=== PATIENT | female | born 1990 | race American Indian/Alaskan Native ===

== ENCOUNTER 2017-06-20 16:54 | Outpatient (CLI) | payer MEDICAID ==
[2017-06-20 18:02] VITALS: BP 115/65
--- NOTE | 2017-06-20 20:28 | Ultrasound Report ---
FINAL REPORT EXAM: US OB LIMITED HISTORY: NHUNG TECHNIQUE: Biophysical profile obstetrical ultrasound PRIORS: None. FINDINGS: LMP 09/12/2016 clinical Age: 40 W 1 D LMP EDC 06/19/2017 Biophysical profile scoring 2 movement 2 tone 2 breathing 2 fluid 8/8 overall score Presentation: Cephalic Cardiac motion: 143 BPM using M-mode doppler Amniotic Fluid Volume: Adequate NHUNG: 8.5 cm IMPRESSION: Single intrauterine viable with an approximate age of 40 weeks 1 days. Biophysical profile score is. 8/8
--- NOTE | 2017-06-20 20:32 | Ultrasound Report ---
FINAL REPORT EXAM: US OB BPP WO NON-STRESS HISTORY: BPP . NHUNG. Onset of labor TECHNIQUE: Biophysical profile obstetrical ultrasound. Cine clips were obtained PRIORS: None. FINDINGS: LMP 09/12/2016 clinical Age: 40 W 1 D LMP EDC 06/19/2017 Biophysical profile scoring 2 movement 2 tone 2 breathing 2 fluid 8/8 overall score Presentation: Cephalic Activity: Monitored Cardiac motion: 143 BPM using M-mode doppler Amniotic Fluid Volume: Adequate NHUNG: 8.5 cm IMPRESSION: Single intrauterine cephalic with an approximate age of 40 weeks 1 days. Biophysical profile score is. 8/8
== END 2017-06-20 19:52 | disposition home or self-care (01) ==
LOC: TRG 16:54
PROVIDERS: ATTEND Obstetrics & Gynecology
DX: O48.0 Post-term pregnancy (principal); Z3A.40 40 weeks gestation of pregnancy
CPT/HCPCS: 59025; 76815; 76819

== ENCOUNTER 2017-06-21 19:07 | Outpatient (CLI) | payer MEDICAID ==
[2017-06-21] MEDS ORDERED: VISTARIL PO PRN (20:05)
[2017-06-23 01:37] VITALS: BP 169/88
== END 2017-06-21 20:28 | disposition home or self-care (01) ==
LOC: TRG 19:07
PROVIDERS: ATTEND Obstetrics & Gynecology
DX: O62.9 Abnormality of forces of labor, unspecified (principal); O48.0 Post-term pregnancy; Z3A.40 40 weeks gestation of pregnancy
CPT/HCPCS: 59025; Q0177

== ENCOUNTER 2017-06-22 20:51 | Inpatient (IN) | payer MEDICAID ==
[2017-06-22] MEDS ORDERED: ePHEDrine SULFATE IV PRN ×2 (20:58→22:33)
[2017-06-22] MEDS ORDERED: XYLOCAINE 2% INFILTRATI ONE (20:58)
[2017-06-22] MEDS ORDERED: STADOL IV PRN (20:58)
[2017-06-22] MEDS ORDERED: BRETHINE SUB-Q PRN (20:58)
[2017-06-22] MEDS ORDERED: MINERAL OIL PO PRN (20:58)
[2017-06-22] MEDS ORDERED: BRETHINE IVP PRN (20:58)
[2017-06-22] MEDS ORDERED: PITOCin/NS 20 UNIT/1000ML DRIP 20 UNITS/1,000 ML BAG IV SCH (21:00)
[2017-06-22 21:15] LABS: Hematocrit 36.3 % (30.3-42.9); Mean Corpuscular HGB Conc 33 % (30-34); Mean Corpuscular Hemoglobin 29 pg (28-32); Mean Corpuscular Volume 88 fl (79-97); Platelet Count 333 K/mm3 (140-440); Red Blood Count 4.13 M/mm3 (3.65-5.03); Red Cell Distribution Width 15.8 % (13.2-15.2)
[2017-06-22] MEDS: NORMOSOL-R PH 7.4 1,000 ML IV SCH ×2 (21:21→22:35)
[2017-06-22] MEDS ORDERED: NARCAN 2 MG/2 ML IV PRN (22:33)
--- NOTE | 2017-06-22 22:33 | Anesthesia Consultation ---
Anesthesia Consult and Med Hx - Airway Anesthetic Teeth Evaluation: Good ROM Head & Neck: Adequate Mental/Hyoid Distance: Adequate Mallampati Class: Class II Intubation Access Assessment: Good - Pulmonary Exam CTA: Yes - Cardiac Exam Cardiac Exam: RRR - Pre-Operative Health Status ASA Pre-Surgery Classification: ASA2 Proposed Anesthetic Plan: Epidural, Spinal - Pulmonary Hx Asthma: No COPD: No Hx Pneumonia: No - Cardiovascular System Hx Hypertension: No - Central Nervous System Hx Seizures: No Hx Psychiatric Problems: No - Endocrine Hx Renal Disease: No Hx End Stage Renal Disease: No Hx Hypothyroidism: No Hx Hyperthyroidism: No - Hematic Hx Anemia: No Hx Sickle Cell Disease: No - Other Systems Hx Alcohol Use: No
--- NOTE | 2017-06-22 22:51 | History and Physical Report ---
History of Present Illness Date of examination: 06/22/17 Date of admission: 06/22/17 20:53 Chief complaint: contractions History of present illness: Pt presents in active labor. + FM Pt examined and noted to be in active labor. EDC Confirmation: 06/19/2017 Gestational Age: 18 3/7 weeks Past History Para: 1 Past Medical History: Peptic Ulcer Disease - endoscopy and hospitalization at [facility] gum infection Past Surgical History: Reviewed history from 03/16/2015 and no changes required: negative Past Medical History Abnormal PAP: negative VERONICA Exposure: negative Infertility: negative Uterine Anomaly: negative Uterine Surgery (not C/S): negative Other Gynecologic Problems: negative Social Hx: Patient is single Unemployed Smoking History: Patient has never smoked. Infection History Hx of STD: none HIV Risk Eval: no Hepatitis B Risk Eval: low risk Personal hx. of genital herpes: no Partner hx. of genital herpes: no Rash, Viral, or Febrile illness since last LMP? no Varicella/Chicken Pox Status: Previous Disease Genetic History Congenital Heart Defect: Mom: no Dad: no Andre Disease: Mom: no Dad: no Thalassemia Mom: no Dad: no Neural Tube Defect Mom: no Dad: no Down's Syndrome Mom: no Dad: no Abhijit-Sachs Mom: no Dad: no Sickle Cell Disease/Trait Mom: no Dad: no Hemophilia Mom: no Dad: no Muscular Dystrophy Mom: no Dad: no Cystic Fibrosis Mom: no Dad: no Miguelina Chorea Mom: no Dad: no Mental Retardation Mom: no Dad: no Fragile X Mom: no Dad: no Other Genetic/Chromosomal Disorder Mom: no Dad: no Child w/other defect Mom: no Dad: no Enviromental Exposures Xray Exposure: no Medication, drug, or alcohol use since LMP: no Chemical/Other Exposure: no Exposure to Cat Liter: no Hx of Parvovirus (Fifth Disease): no Occupational Exposure to Children: none Active Medications (reviewed today): PROMETHAZINE HCL 25 MG ORAL TABLET (PROMETHAZINE HCL) 1 tab po q6hrs prn Current Allergies (reviewed today): * CODEINE (Critical) Past History Past Medical History: no pertinent history Past Surgical History: no surgical history 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: 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: abnormal PAP smear Social history: no significant social history, single - Obstetrical History Expected Date of Delivery: 06/19/17 Actual Gestation: 40 Week(s) 3 Day(s) : 4 Para: 1 Spontaneous Abortions: 2 Number of Living Children: 1 Medications and Allergies Allergies Allergy/AdvReac Type Severity Reaction Status Date / Time codeine Allergy Itching Verified 12/18/14 08:17 Home Medications Medication Instructions Recorded Confirmed Last Taken Type Nitrofurantoin Mccreary/M-Cryst 100 mg PO Q12HR #14 capsule 12/18/14 08/21/15 Unknown Rx [Macrobid CAP] metroNIDAZOLE 0.75%(NF) [Metrogel 1 applicatio TP BID #1 tube 12/18/14 08/21/15 Unknown Rx 0.75% TOPICAL] Lidocain2.5%/Prilocai2.5% [Emla] 5 gm TP ONCE #1 tube 08/21/15 Unknown Rx Ferrous Sulfate [Feosol 325 MG tab] 325 mg PO BID #60 tablet 08/22/15 Unknown Rx Docusate Sodium [Colace] 100 mg PO BID PRN #60 capsule 08/23/15 Unknown Rx HYDROcodone/APAP 7.5-325 [[place] 1 each PO Q8HR PRN #10 tablet 08/27/15 Unknown Rx 7.5-325 mg TAB] Active Meds: Active Medications Butorphanol Tartrate (Stadol) 2 mg IV Q2H PRN PRN Reason: Pain , Severe (7-10) Last Admin: 06/22/17 21:20 Dose: 2 mg Ephedrine Sulfate (Ephedrine Sulfate) 10 mg IV Q2M PRN PRN Reason: Hypotension Parenteral Electrolytes (Normosol-R Ph 7.4) 1,000 mls @ 125 mls/hr IV DIRECT BLANE Last Admin: 06/22/17 22:35 Dose: 125 mls/hr Oxytocin/Sodium Chloride (Pitocin/Ns 20 Unit/1000ml Drip) 20 units in 1,000 mls @ 125 mls/hr IV DIRECT BLANE Fentanyl/Bupivacaine/Sodium Chlor (Fentanyl-Bupiv 2 Mcg/Ml-0.125%) 200 mcg in 100 mls @ 12 mls/hr EPIDURAL TITR BLANE; Protocol Mineral Oil (Mineral Oil) 30 ml PO QHS PRN PRN Reason: Constipation Naloxone HCl (Narcan 2 Mg/2 Ml) 0.2 mg IV Q5M PRN PRN Reason: Respiratory sedation Terbutaline Sulfate (Brethine) 0.25 mg SUB-Q ONCE PRN PRN Reason: Hyperstimulation/Hypertonicity Terbutaline Sulfate (Brethine) 0.25 mg IVP ONCE PRN PRN Reason: Hyperstimulation/Hypertonicity Review of Systems All systems: negative - Vital Signs Vital signs: Vital Signs Resp 20 06/22/17 21:20 Temp Pulse Resp BP Pulse Ox 99.1 F 103 H 18 117/59 0 L 06/22/17 21:38 06/22/17 22:50 06/22/17 21:38 06/22/17 22:50 06/22/17 22:46 - Obstetrical FHR: category 2 (discontinous at times due to pt moving during contractions. affects of pain meds also noted.) Uterine Contraction Pattern: Irregular Uterine Tone Measurement Phase: Resting Uterine Contraction Intensity: Moderate Results Result Diagrams: 06/22/17 21:00 Abnormal lab results 06/22/17 Range/Units 21:00 RDW 15.8 H (13.2-15.2) % All other labs normal. Assessment and Plan - Patient Problems (1) Active labor at term Current Visit: Yes Status: Acute Plan to address problem: -anticipate -this baby is estimated to be 2 lbs heavier than first baby. I d/w the risk of need for operative delivery due to the size of the baby. Pt expressed understanding and questions were addressed and answered. -epidural being placed at this time. (2) 40 weeks gestation of Current Visit: No Status: Acute
[2017-06-22] MEDS ORDERED: fentaNYL-BUPIV 2 MCG/ML-0.125% 200 MCG/100 ML BAG EPIDURAL SCH (23:00)
--- NOTE | 2017-06-22 23:22 | Progress Note ---
Assessment and Plan - Patient Problems (1) Active labor at term Current Visit: Yes Status: Acute Plan to address problem: -s/p AROM -start pitocin -anticipate -clear fluid/ GBS negative (2) 40 weeks gestation of Current Visit: No Status: Acute Subjective - Subjective Date of service: 06/22/17 Principal diagnosis: 40+ weeks in active labor Interval history: Pt s/p AROM with clear fluid noted. ISE and IUPC placed w/o difficulty. Pt tolerated procedure well. Pt comfortable with epidural in place. cx with minimal change and with contractions that have spaced out so will start pitocin at this time. Patient reports: movement normal, no new complaints Objective - Vital Signs Vital Signs: Vital Signs - 12hr 06/22/17 06/22/17 06/22/17 21:20 21:38 22:05 Temperature 99.1 F Pulse Rate 81 83 Respiratory 20 18 Rate Blood Pressure Blood Pressure 105/58 [Right] O2 Sat by Pulse 98 Oximetry 06/22/17 06/22/17 06/22/17 22:10 22:15 22:19 Temperature Pulse Rate 97 H 91 H 95 H Respiratory Rate Blood Pressure Blood Pressure [Right] O2 Sat by Pulse 96 98 87 Oximetry 06/22/17 06/22/17 06/22/17 22:20 22:25 22:36 Temperature Pulse Rate 106 H 98 H 105 H Respiratory Rate Blood Pressure Blood Pressure [Right] O2 Sat by Pulse 98 96 99 Oximetry 06/22/17 06/22/17 06/22/17 22:38 22:40 22:41 Temperature Pulse Rate 92 H 104 H 102 H Respiratory Rate Blood Pressure 114/57 122/63 Blood Pressure [Right] O2 Sat by Pulse 97 Oximetry 06/22/17 06/22/17 06/22/17 22:42 22:44 22:46 Temperature Pulse Rate 110 H 108 H 83 Respiratory Rate Blood Pressure 124/62 124/55 121/65 Blood Pressure [Right] O2 Sat by Pulse 0 L Oximetry 06/22/17 06/22/17 06/22/17 22:48 22:50 22:51 Temperature Pulse Rate 100 H 103 H 99 H Respiratory Rate Blood Pressure 121/66 117/59 Blood Pressure [Right] O2 Sat by Pulse 97 Oximetry 06/22/17 06/22/17 06/22/17 22:52 22:54 22:56 Temperature Pulse Rate 104 H 93 H 99 H Respiratory Rate Blood Pressure 112/56 116/59 Blood Pressure [Right] O2 Sat by Pulse 97 Oximetry 06/22/17 06/22/17 06/22/17 22:57 23:00 23:01 Temperature Pulse Rate 114 H 122 H 133 H Respiratory Rate Blood Pressure 99/58 104/46 Blood Pressure [Right] O2 Sat by Pulse 98 Oximetry 06/22/17 06/22/17 06/22/17 23:02 23:04 23:05 Temperature Pulse Rate 110 H 93 H 106 H Respiratory Rate Blood Pressure 102/49 107/53 Blood Pressure [Right] O2 Sat by Pulse 94 Oximetry 06/22/17 06/22/17 06/22/17 23:06 23:10 23:11 Temperature Pulse Rate 110 H 117 H 89 Respiratory Rate Blood Pressure 98/47 Blood Pressure [Right] O2 Sat by Pulse 96 95 Oximetry 06/22/17 06/22/17 06/22/17 23:14 23:15 23:20 Temperature Pulse Rate 94 H 98 H 90 Respiratory Rate Blood Pressure 105/55 113/53 Blood Pressure [Right] O2 Sat by Pulse 97 Oximetry 06/22/17 23:21 Temperature Pulse Rate 91 H Respiratory Rate Blood Pressure Blood Pressure [Right] O2 Sat by Pulse 97 Oximetry - Exam FHR: category 1 Cervical Dilatation: 7.5 Cervical Effacement Percentage: 80 station: -1 Uterine Contraction Pattern: Irregular Uterine Tone Measurement Phase: Resting Uterine Contraction Intensity: Mild - Labs Labs: Abnormal Labs 06/22/17 21:00 RDW 15.8 H Laboratory Results - last 24 hr 06/22/17 06/22/17 21:00 21:00 WBC 9.9 RBC 4.13 Hgb 12.0 Hct 36.3 MCV 88 MCH 29 MCHC 33 RDW 15.8 H Plt Count 333 Blood Type A POSITIVE Antibody Screen Negative
[2017-06-22] MEDS ORDERED: PITOCin/NS 30 UNIT/500ML 30 UNITS/500 ML BAG IV SCH (23:45)
[2017-06-23] MEDS ORDERED: XYLOCAINE 2%/ EPI 1:200,000 INFILTRATI ONE (00:45)
[2017-06-23] MEDS ORDERED: METHERGINE IM ONE ×2 (02:50→03:12)
[2017-06-23] MEDS ORDERED: ZOFRAN ONE (03:09)
[2017-06-23] MEDS ORDERED: ZOFRAN IV ONE (03:11)
--- NOTE | 2017-06-23 03:18 | Procedure Note ---
OB Delivery Note - Delivery Date of Delivery: 06/23/17 Surgeon: MARIA GUADALUPE PEREZ Estimated blood loss: other (350ml) - Vaginal Delivery presentation: vertex Delivery position: OA Intrapartum events: mult.variable deceleratio Delivery induction: none Delivery augmentation: rupture of membranes, pitocin Delivery monitor: external FHT, external uterine, internal FHT, internal uterine Route of delivery: Delivery placenta: spontaneous (intact) Delivery cord: nuchal cord (tight x1 clamped x2 anc cut x1 and easily reduced after delivery of ant shoulder.) Episiotomy: midline (there were not extensions and it was prepared in usual fashion with 3-0 vicryl) Delivery laceration: none Delivery repair: vicryl (3-0) Anesthesia: epidural Delivery comments: Delivery as above. MLE cut prior to delivery.The ant shoulder delivered w/o difficulty. Tight nuchal cord noted and clamped x2 and cut x1 and easily reduced. rest of delivered w/o difficulty. Due to variable decels prior to delivery, infant was taken to warmer to waiting respiratory and NICU teams. MLE was w/o extensions and repaired in usual fashion with 3-0 vicryl. EBL 350ml. Mother and infant stable in LDR. - Infant A at 1 minute: 7 at 5 minutes: 9 Infant Gender: Male (8lbs 9oz)
[2017-06-23] MEDS ORDERED: DULCOLAX PR PRN (03:19)
[2017-06-23] MEDS ORDERED: PHENERGAN PR PRN (03:19)
[2017-06-23] MEDS ORDERED: TYLENOL PO PRN (03:19)
[2017-06-23] MEDS ORDERED: TUCKS PAD TP PRN (03:19)
[2017-06-23] MEDS ORDERED: MILK OF MAGNESIA PO PRN (03:19)
[2017-06-23] MEDS ORDERED: LANSINOH TP PRN (03:19)
[2017-06-23] MEDS ORDERED: BENADRYL PO PRN (03:19)
[2017-06-23] MEDS ORDERED: SODIUM CHLORIDE FLUSH SYRINGE 10 ML IV PRN (04:00)
[2017-06-23] MEDS ORDERED: MOTRIN PO SCH (04:00)
[2017-06-23] MEDS ORDERED: NORCO 5/325 PO PRN (08:47)
[2017-06-23] MEDS ORDERED: DERMOPLAST TP PRN (08:58)
[2017-06-23] MEDS: MOTRIN PO PRN ×2 (12:06→20:43)
[2017-06-23 15:26] LABS: Hematocrit 31.9 % (30.3-42.9); Hemoglobin 10.6 gm/dl (10.1-14.3)
--- NOTE | 2017-06-24 01:13 | Discharge Summary ---
Providers - Providers Date of Admission: 06/22/17 20:53 Date of discharge: 06/24/17 Attending physician: MARIA GUADALUPE PEREZ Primary care physician: MARIA GUADALUPE PEREZ Hospitalization Reason for admission: active labor Condition: Good Procedures: uncomplicated vaginal delivery Hospital course: uncomplicated vaginal delivery and course. Disposition: -01 TO HOME OR SELFCARE - Discharge Diagnoses (1) Vaginal delivery Status: Acute Comment: rto 4 weeks for PP care Core Measure Documentation - Palliative Care Palliative Care/ Comfort Measures: Not Applicable - Core Measures Any of the following diagnoses?: none Exam - Constitutional Vitals: Temp Pulse Resp BP Pulse Ox 98.2 F 64 20 97/41 96 06/23/17 16:00 06/23/17 16:00 06/23/17 16:00 06/23/17 16:00 06/23/17 05:35 General appearance: Present: no acute distress, well-nourished - EENT Eyes: Present: PERRL ENT: hearing intact, clear oral mucosa - Neck Neck: Present: supple, normal ROM - Respiratory Respiratory effort: normal Respiratory: bilateral: CTA - Cardiovascular Heart Sounds: Present: S1 & S2. Absent: rub, click - Extremities Extremities: pulses symmetrical, No edema Peripheral Pulses: within normal limits - Abdominal General gastrointestinal: Present: soft, non-tender, non-distended, normal bowel sounds Female genitourinary: Present: normal - Integumentary Integumentary: Present: clear, warm, dry - Musculoskeletal Musculoskeletal: gait normal, strength equal bilaterally - Psychiatric Psychiatric: appropriate mood/affect, intact judgment & insight - Neurologic Neurologic: CNII-XII intact, moves all extremities - Additional findings Additional findings: patient resting w/o complaints. VSSAF, H&H stable w/o s/s anemia. Lochia scant. fundus firm. Plan for d/c home today w/ routine f/u in office. Plan Activity: no restrictions Diet: regular Wound: open to air, keep clean and dry Follow up with: MARIA GUADALUPE PEREZ MD [Primary Care Provider] - 7 Days (Congratulations!! Please call [phone] to schedule your son's circumcision in 1 week and your visit in 4 weeks. Bring EMLA cream to your son's visit and await further instructions. Call for any questions or concerns.)
[2017-06-24] MEDS ORDERED: BOOSTRIX IM ONE (06:00)
[2017-06-24 13:59] VITALS: BP 102/53
== END 2017-06-24 15:10 | disposition home or self-care (01) | DRG 775 ==
LOC: TRG 20:51 → LD 20:53 → OB 06-23 05:00
PROVIDERS: ADMIT Obstetrics & Gynecology; ATTEND Obstetrics & Gynecology
PROC: 10E0XZZ Delivery of Products of Conception, External Approach (ICD-10-PCS; principal; 2017-06-23)
PROC: 3E0R3BZ Introduction of Anesthetic Agent into Spinal Canal, Percutaneous Approach (ICD-10-PCS; 2017-06-23)
PROC: 00HU33Z Insertion of Infusion Device into Spinal Canal, Percutaneous Approach (ICD-10-PCS; 2017-06-23)
PROC: 10H07YZ Insertion of Other Device into Products of Conception, Via Natural or Artificial Opening (ICD-10-PCS; 2017-06-23)
PROC: 0W8NXZZ Division of Female Perineum, External Approach (ICD-10-PCS; 2017-06-23)
DX: O69.1XX0 Labor and delivery complicated by cord around neck, with compression, not applicable or unspecified (principal); O76 Abnormality in fetal heart rate and rhythm complicating labor and delivery; Z3A.40 40 weeks gestation of pregnancy; Z37.0 Single live birth
CPT/HCPCS: 36415; 85014; 85018; 85027; 86592; 86850; 86900; 86901; 88307; J0595; J2210; J2405; J2590